=== PATIENT | male | born 1965 | race Caucasian/White ===

== ENCOUNTER 2021-11-28 19:56 | Emergency (ER) | payer OTHER ==
[2021-11-28] MEDS ORDERED: Sodium Chloride 0.9% 10 ML Syringe FLUSH PRN (20:34)
[2021-11-28] MEDS ORDERED: Sodium Chloride 0.9% 1,000 ML IV SCH (20:45)
[2021-11-28 21:25] LABS: ESTIMATED GFR > 60 MLS/MIN (>60)
[2021-11-28] MEDS ORDERED: Ondansetron 4 MG Tab.DIS ONE (22:10)
== END 2021-11-28 22:13 | disposition home or self-care (01) ==
LOC: LB.ED 19:56
DX: K52.9 Noninfective gastroenteritis and colitis, unspecified (principal); Z20.822 Contact with and (suspected) exposure to COVID-19
CPT/HCPCS: 36415; 71046; 80048; 81001; 83605; 85025; 87040; 87635; 87804; 96360; 99284; J7030; Q0162; 99282; U0002